=== PATIENT | male | born 1955 | race Caucasian/White ===

== ENCOUNTER 2017-01-13 11:30 | Day surgery (SDC) | payer BC ==
[2017-01-13] MEDS ORDERED: PHENYLEPHRINE HCL 10 MG/ML VIAL ONE (12:59)
[2017-01-13] MEDS ORDERED: LIDOCAINE HCL 2% 100 MG/5 ML SYRINGE ONE (13:00)
[2017-01-13] MEDS ORDERED: ePHEDrine/NS 25 MG/5 ML SYR ONE (13:00)
[2017-01-13] MEDS ORDERED: PROPOFOL 200 MG/20 ML AMP IV ONE (14:00)
[2017-01-13] MEDS ORDERED: ONDANSETRON HCL 4 MG/2 ML VIAL ONE (14:02)
[2017-01-13] MEDS ORDERED: MUPIROCIN 2% OINT 1 APPLIC/GM SYR NASAL SCH (15:00)
[2017-01-13] MEDS ORDERED: NS 1000 ML IV SCH (15:00)
[2017-01-13] MEDS ORDERED: POVIDONE IODINE 5% (ANTISEPSIS KIT) 4 APPLICATIONS EACH NARE SCH (15:00)
[2017-01-13] MEDS ORDERED: ceFAZolin 2 GM PREMIX 50 ML IV SCH (15:00)
[2017-01-13] MEDS ORDERED: CHLORHEXIDINE GLUCONATE 2 % 1 PACK (2 CLOTHS) TOPICAL SCH (15:00)
[2017-01-13] MEDS ORDERED: NO Heparin, Lovenox, Coumadin at least 12 hours prior to procedure. PRN (15:00)
--- NOTE | 2017-01-13 22:43 | CF ---
cc: DAR BOYLE M.D. TRANSESOPHAGEAL ECHO INDICATION Rule out cryptogenic embolic source. CONSENT Full informed consent was obtained prior to the procedure. The risk of , bleeding, perforation, aspiration, foreseen and unforeseen were reviewed. The patient fully appeared to understand. PROCEDURE The patient was draped and prepped in the usual manner. Full SHINE was performed. FINDINGS The left atrial appendage is free of thrombus. The interatrial septum is intact. Interventricular septum is intact. There is evidence of trace mitral regurgitation. Mitral valve moves normally, tricuspid normally. LV function is normal. There is no obvious thromboembolic source. Agitated contrast solution, bubble study was carried out which was negative for [id number] shunting. The aorta was visualized with no significant plaquing noted. CONCLUSION Negative transesophageal echo for thromboembolic source. Dar Boyle MD, CP,[facility]/[place] /2:08 PM /10:27 PM
--- NOTE | 2017-01-14 16:47 | MP ---
cc: DAR BOYLE M.D., PAUL M. M.D. EHRINGER, GERALD M.D. DATE OF SURGERY: 01/14/2017. OPERATIVE PROCEDURE PERFORMED: Loop recorder placement. INDICATIONS FOR THE PROCEDURE: Stroke, possible underlying atrial fibrillation. CONSENT: Full informed consent was obtained prior to the procedure. The risks of , bleeding, perforation, infection, foreseen and unforeseen complications were reviewed. The patient fully appeared to understand and signed the consent. DESCRIPTION OF THE PROCEDURE IN DETAIL: The patient was prepped and draped in the usual manner. Anesthesia was given as per the anesthesia department. Local anesthesia was also used. Using a LOYAL3 Injector Device, a loop recorder was injected under the skin. It was withdrawn using a suture as adequate sensing parameters were not noted. Following this, it was repositioned and re-injected in a more vertical position. Excellent sensing was noted. The pocket was then closed using Steri-Strips. CONCLUSIONS: Successful placement of loop recorder. Dar Boyle MD, FRCP,[facility]/[place] /2:10 PM /4:02 PM
== END 2017-01-13 16:00 | disposition home or self-care (01) ==
LOC: HDOC 11:30 → HDIC 11:31 → HDOC 16:00
PROVIDERS: ATTEND Internal Medicine Cardiovascular Disease
DX: I63.9 Cerebral infarction, unspecified (principal); I34.0 Nonrheumatic mitral (valve) insufficiency
CPT/HCPCS: 01922; 33282; 93312; 93320; 93325; C1764; J0690; J2370; J7030; J2405